=== PATIENT | female | born 1990 | race Caucasian/White ===

== ENCOUNTER 2023-04-15 14:00 | Emergency (ER) | payer MEDICAID ==
[~2023-04-15] VITALS: Ht 162.6 cm; Wt 56.3 kg
[~2023-04-15 14:00] MED LIST: ASPI81CH43 PO
[2023-04-15] MEDS ORDERED: KETOROLAC TROMETH 60MG/2ML VIAL IM ONE (15:15)
[2023-04-15] MEDS ORDERED: ONDANSETRON ODT 4 MG TAB PO ONE (15:15)
[2023-04-15] MEDS ORDERED: ZOFR4T PO (15:24)
[2023-04-15] MEDS ORDERED: IBUP-1454 PO (15:24)
[2023-04-15 15:44] VITALS: BP 110/80; PULSE 80; RESP 18; O2SAT 100
== END 2023-04-15 15:46 | disposition home or self-care (01) ==
LOC: ER 14:00
DX: G43.909 Migraine, unspecified, not intractable, without status migrainosus (principal); Z79.82 Long term (current) use of aspirin; Z79.1 Long term (current) use of non-steroidal anti-inflammatories (NSAID); Z79.899 Other long term (current) drug therapy
CPT/HCPCS: 96372; 99283; J1885; Q0162

== ENCOUNTER 2023-05-23 22:40 | Emergency (ER) | payer MEDICAID ==
[~2023-05-23] VITALS: Ht 162.6 cm; Wt 56.8 kg
[~2023-05-23 22:40] MED LIST changes: +IBUP-1454 PO; +ZOFR4T PO
[2023-05-23 22:58] VITALS: BP 106/55; PULSE 94; RESP 20; O2SAT 98
== END 2023-05-24 01:23 | disposition left against medical advice (07) ==
LOC: ER 22:40
DX: S11.91XD Laceration without foreign body of unspecified part of neck, subsequent encounter (principal); Z53.21 Procedure and treatment not carried out due to patient leaving prior to being seen by health care provider; X58.XXXD Exposure to other specified factors, subsequent encounter

== ENCOUNTER 2024-09-01 21:27 | Emergency (ER) | payer MEDICAID ==
[~2024-09-01] VITALS: Ht 162.6 cm; Wt 61.8 kg
[2024-09-01 22:14] VITALS: BP 113/64; PULSE 86; RESP 18; TEMP 98; O2SAT 97
[2024-09-01] MEDS ORDERED: IBUP1TAB4 PO (22:26)
--- NOTE | 2024-09-01 22:26 | ED.PDOC ---
Back pain HPI HPI Comments 33-year-old female with no pertinent past medical history, presents to ED for left hand pain x1 week, without any other associated symptoms. 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 She also states that the pain is aggravated with certain movements. Patient currently rates her pain as 5/10 in severity. She denies taking any medication for pain. No fever, chills, nausea, vomiting, numbness, tingling. Pain is localized to her left hand around the thumb region. Chief Complaint: Upper Extremity Time Seen by MD: 21:28 Primary Care Provider: Unknown Reviewed Notes: Nurses Notes, Medications, Allergies Allergies: Coded Allergies: NO KNOWN ALLERGIES (Unverified , 02/14/13) Home Meds Active Scripts Ondansetron Odt 4MG Tab (ZOFRAN PO) 4 Mg Tb, 4 MG PO BID, #20 TAB ODT TAB-DISSOLVE IN MOUTH, THEN SWALLOW Prov:ROSELINE ARRIAZA 04/15/23 Ibuprofen (Ibuprofen) 600 Mg Tab, 1 TAB PO TID, #30 TAB Prov:ROSELINE ARRIAZA 04/15/23 Reported Medications Aspirin (Asa) 81 Mg Ch, 81 MG PO OD 02/14/13 Mode of Arrival: Ambulatory Past Medical History PAST MEDICAL HISTORY: Denies Surgical History: REHAB NURSE History: Denies all REHAB NURSE Hx Family History Family History: Reviewed,noncontributory to illness Social History Smoker: Non-Smoker Alcohol: Denies ETOH Use Drugs: Denies Drug Use Lives In: Home Constitutional: denies: chills, diaphoresis, fatigue, fever, malaise, sweats, weakness, others EENTM: denies: blurred vision, double vision, ear bleeding, ear discharge, ear drainage, ear pain, ear ringing, eye pain, eye redness, hearing loss, mouth pain, mouth swelling, nasal discharge, nose bleeding, nose congestion, nose pain, photophobia, tearing, throat pain, throat swelling, voice changes, others Respiratory: denies: cough, hemoptysis, orthopnea, SOB at rest, shortness of breath, SOB with excertion, stridor, wheezing, others Cardiovascular: denies: chest pain, dizzy spells, diaphoresis, Dyspnea on exertion, edema, irregular heart beat, left arm pain, lightheadedness, palpitations, PND, syncope, others Gastrointestinal: denies: abdomen distended, abdominal pain, blood streaked bowels, constipated, diarrhea, dysphagia, difficulty swallowing, hematemesis, melena, nausea, poor appetite, poor fluid intake, rectal bleeding, rectal pain, vomiting, others Genitourinary: denies: abnormal vagina bleeding, burning, dyspareunia, dysuria, flank pain, frequency, hematuria, incontinence, pain, , vagina discharge, urgency, others Musculoskeletal: reports: joint pain; denies: back pain, gout, joint swelling, muscle pain, muscle stiffness, neck pain, others Integumetry: denies: bruises, change in color, change in hair/nails, dryness, laceration, lesions, lumps, rash, wounds, others Allergic/Immunocompromised: denies: Difficulty Healing, Frequent Infections, Hives, Itching, others Hematologic/Lymphatic: denies: anemia, blood clots, easy bleeding, easy bruising, swollen glands, others Endocrine: denies: excessive hunger, excessive sweating, excessive thirst, excessive urination, flushing, intolerance to cold, intolerance to heat, un explained weight gain, unexplained weight loss, others Psychiatric: denies: anxiety, bipolar disorder, depression, hopeless, panic disorder, schizophrenia, sleepless, suicidal, others All Other Systems: Reviewed and Negative Physical Exam General Appearance: No Apparent Distress, Normal HEENT: Normal ENT Inspection, Pharynx Normal, TMs Normal Neck: Full Range of Motion, Non-Tender, Normal, Normal Inspection Respiratory: Chest Non-Tender, Lungs Clear, No Accessory Muscle Use, No Respiratory Distress, Normal Breath Sounds Cardiovascular: No Edema, No JVD, No Murmur, No Gallop, Normal Peripheral Pu lses, Regular Rate/Rhythm Breast Exam: Deferred Gastrointestinal: No Organomegaly, Non Tender, No Pulsatile Mass, Normal Bowel Sounds, Soft Genitalia: Deferred Pelvic: Deferred Rectal: Deferred Extremities: No calf tenderness, Normal capillary refill, Normal inspection, Normal range of motion, Non-tender, No pedal edema Musculoskeletal : Location: Left Extremity Location: Hand (Full range of motion of the left hand. Patient able to make a fist. Normal sensation to the hand. No tenderness to palpation. Positive Rich's test. No obvious deformity or swelling noted. No erythema or ecchymosis noted.) Apperance: Normal Neurologic: Alert, chopper operator II-XII nml as Tested, No Motor Deficits, Normal Affect, Normal Mood, No Sensory Deficits Cerebellar Function: Normal Reflexes: Normal Skin: Dry, Normal Color, Warm Lymphatic: No Adenopathy Was a procedure done? Was a procedure done?: No Back Pain Differential Dx Differential Diagnosis: DJD, Fracture, Musculoskeletal Pain, Strain, Other (Tendinitis) X-Ray, Labs, Meds, VS Vital Signs Date Time Temp Pulse Resp B/P (MAP) Pulse Ox O2 Delivery O2 Flow Rate FiO2 09/01/24 22:14 86 18 97 Room Air 09/01/24 22:14 98.0 86 18 113/64 (80) 97 98.0 09/01/24 21:58 98.0 86 18 113/64 (80) 97 X-Ray, Labs, Meds, VS Comment MDM: Patient with history as above presented with left hand pain. History obtained from patient. Patient was nontoxic, stable, afebrile, ambulatory, no acute distress. Exam as above. Reviewed external records. All findings were discussed with the patient. Differential diagnosis considered. Overall presentation is consistent with musculoskeletal hand pain, likely tendinitis. Low suspicion for acute fracture, dislocation, septic joint, acute infection. Patient was treated with Toradol with improvement in symptoms. Patient was reevaluated and vital signs were reviewed. Consideration was given for admission, but the patient was stable for outpatient management. Prescribed ibuprofen for outpatient treatment. Disposition: Discussed the need to follow up diagnostics, including incidental findings. Discharged the patient with instructions to obtain outpatient follow up in 1-2 days of today's symptoms and findings, with strict return precautions if patient develops new or worsening symptoms. This medical document was created using the [employer] system. Although this document has been carefully reviewed, there may still be some phonetic and typographical errors, which are due to imperfections of the software program, and do not reflect any compromise in the patient's medical care. Time of 1ST Reevaluation: 22:25 Reevaluation 1ST: Improved Patient Education/Counseling: Diagnosis, Treatment, Prognosis, Need For Follow Up Family Education/Counseling: No Family Present Departure 1 Departure Time of Disposition: 22:25 Impression: Primary Impression: Left hand pain Disposition: HOME / SELF CARE / HOMELESS Condition: Fair e-Prescriptions Ibuprofen Micronized (Ibuprofen) 400 Mg Tab 400 MG PO Q6HPRN PRN, #30 TAB Prov: JOSE HERNÁNDEZ PAC 09/01/24 Critical Care Note Critical Care Time?: No Stability Stability form required: No Heart Score Heart Score: Heart Score Response (Comments) Value History N/A 0 EKG N/A 0 Age N/A 0 Risk Factors N/A 0 Troponin N/A 0 Total 0 JOSE HERNÁNDEZ PAC Sep 01, 2024 22:26
[2024-09-01] MEDS: KETOROLAC TROMETH 30 MG/ML 1ML VIAL IM ONE (22:31)
== END 2024-09-01 22:36 | disposition home or self-care (01) ==
LOC: ER 21:27
DX: M79.642 Pain in left hand (principal); Z79.1 Long term (current) use of non-steroidal anti-inflammatories (NSAID)
CPT/HCPCS: 96372; 99283; J1885

== ENCOUNTER 2024-12-15 00:08 | Inpatient (IN) | payer MEDICAID ==
[~2024-12-15] VITALS: Ht 165.1 cm; Wt 73.6 kg
[2024-12-15] VITALS (7 sets, daily range): BP systolic 96–115; BP diastolic 48–61; PULSE 55–85; RESP 14–18; TEMP 96.7–98.4; O2SAT 96–99
[~2024-12-15 00:08] MED LIST changes: +IBUP1TAB4 PO
--- NOTE | 2024-12-15 00:27 | ED.PDOC ---
History of Present Illness HPI Comments 34-year-old female who came to ER via EMS for back pains. Patient is a , was at [facility] earlier today, where in she had an , status post dilatation and curettage. As she got home, she started complaining of lower back pains, radiating to her mid/lower abdomen, associated with nausea and vomiting. Noted also minimal vaginal bleeding. Vital signs were stable on arrival, but the patient was in severe pain and does look toxic. Chief Complaint: Back pain Time Seen by MD: 00:26 Primary Care Provider: Unknown Reviewed Notes: Nurses Notes, Wireless Operator Notes Allergies: Coded Allergies: NO KNOWN ALLERGIES (Unverified , 02/14/13) Home Meds Active Scripts Ibuprofen Micronized (Ibuprofen) 400 Mg Tab, 400 MG PO Q6HPRN PRN, #30 TAB Prov:JOSE HERNÁNDEZ PAC 09/01/24 Ondansetron Odt 4MG Tab (ZOFRAN PO) 4 Mg Tb, 4 MG PO BID, #20 TAB ODT TAB-DISSOLVE IN MOUTH, THEN SWALLOW Prov:ROSELINE ARRIAZA 04/15/23 Ibuprofen (Ibuprofen) 600 Mg Tab, 1 TAB PO TID, #30 TAB Prov:ROSELINE ARRIAZA 04/15/23 Reported Medications Aspirin (Asa) 81 Mg Ch, 81 MG PO OD 02/14/13 Information Source: Patient, Emergency Med Personnel Mode of Arrival: EMS Severity: Moderate Timing: Hours Duration: Since onset Prehospital treatment: None Past Medical History PAST MEDICAL HISTORY: Denies Surgical History: Surgical History (Other): D&C procedure performed today MAIL CENSOR History: Denies all MAIL CENSOR Hx 8 Para 6 Family History Family History: Reviewed,noncontributory to illness Social History Smoker: Non-Smoker Alcohol: Denies ETOH Use Drugs: Denies Drug Use Lives In: Home Constitutional: denies: chills, diaphoresis, fatigue, fever, malaise, sweats, weakness, others EENTM: denies: blurred vision, double vision, ear bleeding, ear discharge, ear drainage, ear pain, ear ringing, eye pain, eye redness, hearing loss, mouth pain, mouth swelling, nasal discharge, nose bleeding, nose congestion, nose pain, photophobia, tearing, throat pain, throat swelling, voice changes, others Respiratory: denies: cough, hemoptysis, orthopnea, SOB at rest, shortness of breath, SOB with excertion, stridor, wheezing, others Cardiovascular: denies: chest pain, dizzy spells, diaphoresis, Dyspnea on exertion, edema, irregular heart beat, left arm pain, lightheadedness, palpitations, PND, syncope, others Gastrointestinal: reports: abdominal pain, nausea, vomiting; denies: abdomen distended, blood streaked bowels, constipated, diarrhea, dysphagia, difficulty swallowing, hematemesis, melena, poor appetite, poor fluid intake, rectal bleeding, rectal pain, others Genitourinary: reports: abnormal vagina bleeding; denies: burning, dyspareunia, dysuria, flank pain, frequency, hematuria, incontinence, pain, , vagina discharge, urgency, others Neurological: denies: dizziness, fainting, headache, left sided numbness, left sided weakness, numbness, paresthesia, pre-existing deficit, right sided numbness, right sided weakness, seizure, speech problems, tingling, tremors, weakness, others Musculoskeletal: reports: back pain; denies: gout, joint pain, joint swelling, muscle pain, muscle stiffness, neck pain, others Integumetry: denies: bruises, change in color, change in hair/nails, dryness, laceration, lesions, lumps, rash, wounds, others Allergic/Immunocompromised: denies: Difficulty Healing, Frequent Infections, Hives, Itching, others Hematologic/Lymphatic: denies: anemia, blood clots, easy bleeding, easy bruising, swollen glands, others Endocrine: denies: excessive hunger, excessive sweating, excessive thirst, excessive urination, flushing, intolerance to cold, intolerance to heat, unexplained weight gain, unexplained weight loss, others Psychiatric: denies: anxiety, bipolar disorder, depression, hopeless, panic disorder, schizophrenia, sleepless, suicidal, others Physical Exam General Appearance: Moderate Distress (Patient was in moderate distress at time of evaluation due to belly and back pain concerns.), Normal HEENT: Normal ENT Inspection, Pharynx Normal, TMs Normal Neck: Full Range of Motion, Non-Tender, Normal, Normal Inspection Respiratory: Chest Non-Tender, Lungs Clear, No Accessory Muscle Use, No Respiratory Distress, Normal Breath Sounds Cardiovascular: No Edema, No JVD, No Murmur, No Gallop, Normal Peripheral Pulses, Regular Rate/Rhythm Breast Exam: Deferred Gastrointestinal: Other (Diffuse tenderness to palpation throughout the lower abdomen and pelvis region. Abdomen was mildly rigid.) Genitalia: Deferred Pelvic: Deferred Rectal: Deferred Extremities: No calf tenderness, Normal capillary refill, Normal inspection, Normal range of motion, Non-tender, No pedal edema Musculoskeletal : Location: Bilateral Extremity Location: Back (Remarkable evaluation of lower back and lumbar spine region. No signs of trauma.) Apperance: Normal Neurologic: Alert, No Motor Deficits, Normal Affect, Normal Mood, No Sensory Deficits Cerebellar Function: Normal Reflexes: Normal Skin: Dry, Normal Color, Warm Lymphatic: No Adenopathy Was a procedure done? Was a procedure done?: No Differential Dx Considerations may include: Musculoskeletal pain, lumbosacral strain, urinary tract infection, sepsis, electrolyte abnormality, complication of D and C X-Ray, Labs, Meds, VS Vital Signs Date Time Temp Pulse Resp B/P (MAP) Pulse Ox O2 Delivery O2 Flow Rate FiO2 12/15/24 00:32 Room Air 12/15/24 00:32 98.6 75 20 140/89 (106) 99 98.6 12/15/24 00:32 98.6 75 20 140/89 (106) 99 98.6 Lab Test 12/15/24 00:22 Range/Units White Blood Count 19.6 H 4.4-10.8 10^3/uL Red Blood Count 4.06 4.0-5.20 10^6/uL Hemoglobin 12.4 12.2-16.2 g/dL Hematocrit 36.6 36.0-46.0 % Mean Corpuscular Volume 90.1 80.0-100.0 fL Mean Corpuscular Hemoglobin 30.4 28.0-32.0 pg Mean Corpuscular Hemoglobin Concent 33.8 32.0-36.0 g/dL Red Cell Distribution Width 13.7 11.8-14.3 % Platelet Count 145 140-450 10^3/uL Mean Platelet Volume 8.0 6.9-10.8 fL Neutrophils (%) (Auto) 88.1 H 37.0-80.0 % Lymphocytes (%) (Auto) 6.5 L 10.0-50.0 % Monocytes (%) (Auto) 4.8 0.0-12.0 % Eosinophils (%) (Auto) 0.1 0.0-7.0 % Basophils (%) (Auto) 0.5 0.0-2.0 % Neutrophils # (Auto) 17.3 H 1.6-8.6 10 ^3/uL Lymphocytes # (Auto) 1.3 0.4-5.4 10 ^3/uL Monocytes # (Auto) 0.9 0-1.3 10 ^3/uL Eosinophils # (Auto) 0 0-0.8 10 ^3/uL Basophils # (Auto) 0.1 0-0.2 10 ^3/uL Nucleated Red Blood Cells 0.0 % Sodium Level Pending Potassium Level Pending Chloride Level Pending Carbon Dioxide Level Pending Anion Gap Pending Blood Urea Nitrogen Pending Creatinine Pending Glomerular Filtration Rate Calc Pending BUN/Creatinine Ratio Pending Serum Glucose Pending Calcium Level Pending Total Bilirubin Pending Aspartate Amino Transferase (AST) Pending Alanine Aminotransferase (ALT) Pending Alkaline Phosphatase Pending Total Protein Pending Albumin Pending Current Medications Medications (Trade) Dose Ordered Sig/Richard Route Start Time Stop Time Status Last Admin Acetaminophen/ Hydrocodone Bitart ([place] 10/325MG Tab) 1 tab ONCE ONCE PO 12/15/24 00:15 12/15/24 00:16 DC 12/15/24 00:47 Ondansetron HCl (Zofran Po) 4 mg ONCE ONCE PO 12/15/24 00:15 12/15/24 00:16 DC 12/15/24 00:47 X-Ray, Labs, Meds, VS Comment Multiple studies were pending at time of this note[place] [id number]. I initiated septic protocols without definitive sepsis diagnosis. Patient will be admitted for her leukocytosis concerns as well as any additional findings on laboratories. Patient should receive a gynecological consult tomorrow Time of 1ST Reevaluation: 01:30 Reevaluation 1ST: Improved Consultation: PCP, non clinical advisor Patient Education/Counseling: Diagnosis, Treatment Family Education/Counseling: Diagnosis, Treatment, No Family Present Departure 1 Departure Time of Disposition: 01:31 Impression: Primary Impression: Leukocytosis Additional Impression: Postoperative complication Disposition: ADMITTED INPATIENT Condition: Fair Discharged With: Self Critical Care Note Critical Care Time?: No Stability Stability form required: No Heart Score Heart Score: Heart Score Response (Comments) Value History N/A 0 EKG N/A 0 Age N/A 0 Risk Factors N/A 0 Troponin N/A 0 Total 0 I personally scribed for RICHY RICHARDSON PAC ([email or web address]) on 12/15/24 at 00:27. Electronically submitted by Anselmo Parks ([email or web address]). RICHY RICHARDSON PAC Dec 15, 2024 00:27
[2024-12-15] MEDS: HYDROcodone-ACET 10/325MG TAB PO ONE (00:47)
[2024-12-15] MEDS: ONDANSETRON ODT 4 MG TAB PO ONE (00:47)
[2024-12-15 01:09] LABS: Basophils # (auto) 0.1 10 ^3/uL (0-0.2); Basophils % (auto) 0.5 % (0.0-2.0); Eosinophils # (auto) 0 10 ^3/uL (0-0.8); Eosinophils % (auto) 0.1 % (0.0-7.0); Hematocrit 36.6 % (36.0-46.0); Hemoglobin 12.4 g/dL (12.2-16.2); Lymphocytes # (auto) 1.3 10 ^3/uL (0.4-5.4); Lymphocytes % (auto) 6.5 % (10.0-50.0); Mean Corpuscular Hemoglobin 30.4 pg (28.0-32.0); Mean Corpuscular Hgb Conc. 33.8 g/dL (32.0-36.0); Mean Corpuscular Volume 90.1 fL (80.0-100.0); Monocytes # (auto) 0.9 10 ^3/uL (0-1.3); Monocytes % (auto) 4.8 % (0.0-12.0); Neutrophils # (auto) 17.3 10 ^3/uL (1.6-8.6); Neutrophils % (auto) 88.1 % (37.0-80.0); Platelet Count (auto) 145 10^3/uL (140-450); Red Blood Cells 4.06 10^6/uL (4.0-5.20); Red Cell Distribution Width 13.7 % (11.8-14.3); White Blood Cell 19.6 10^3/uL (4.4-10.8)
[2024-12-15 01:27] LABS: Alanine Aminotransferase 12 U/L (7-40); Albumin 4.3 g/dL (3.2-4.8); Anion Gap 11 (5-15); Aspartate Aminotransferase 18 U/L (13-40); BUN/Creatinine Ratio 17.5 (10.0-20.0); Blood Urea Nitrogen 11 mg/dL (9-23); Calcium 9.7 mg/dL (8.7-10.4); Chloride 105 mmol/L (98-107); Total Protein 6.6 g/dL (5.7-8.2)
[2024-12-15 01:30] LABS: Alkaline Phosphatase 42 U/L (46-116); Bilirubin, Total 1.3 mg/dL (0.2-1.0); Carbon Dioxide 19 mmol/L (20-31); Glucose 150 mg/dL (74-106); Potassium 3.4 mmol/L (3.5-5.1); Sodium 135 mmol/L (136-145)
[2024-12-15] MEDS ORDERED: VANCOMYCIN PER PHARMACY 0 MG IV SCH ×2 (01:30→02:15)
[2024-12-15] MEDS: VANCOMYCIN 1GM/200ML PM 200 ML IV ONE ×2 (01:45→05:26)
[2024-12-15] MEDS ORDERED: DOCUSATE SOD 100 MG CAP PO PRN (02:15)
[2024-12-15] MEDS ORDERED: ACETAMINOPHEN 325 MG TAB PO PRN (02:15)
[2024-12-15] MEDS ORDERED: LORazepam 0.5 MG TAB PO PRN (02:15)
[2024-12-15] MEDS ORDERED: TEMAZEPAM 15 MG CAP PO PRN (02:15)
[2024-12-15] MEDS ORDERED: MAALOX PLUS or MAALOX 30 ML PO PRN (02:15)
[2024-12-15] MEDS: SODIUM CHLORIDE 0.9% 1,000 ML IV SCH (02:15)
[2024-12-15] MEDS: SODIUM CHLORIDE 0.9% 1,000 ML IV ONE (02:44)
[2024-12-15] MEDS: HYDROMORPHONE HCL 1 MG/ML INJ IV ONE (02:45)
[2024-12-15] MEDS: MORPHINE SULFATE INJ 2 MG/ml SYRG IV PRN (02:54)
[2024-12-15] MEDS: ONDANSETRON HCL 4 MG/2 ML VIAL IV PRN (02:54)
[2024-12-15 02:55] LABS: Lactic Acid w/Reflex 2.8 mmol/L (0.4-2.0)
[2024-12-15] MEDS: PIPERACILLIN-TAZOB 3.375GM 100 ML IV ONE (02:56)
--- NOTE | 2024-12-15 02:59 | DVHHP2 ---
History of Present Illness Reason for Visit: abd pain History of Present Illness 34-year-old female came to the ED for evaluation of acute abdominal pain stated that she had a earlier and had a D&C completed states that after this D&C was done she went home and was having severe abdominal pain mild vaginal bleeding came to the ED with complaints of severe plain elevated white count and appearing septic in nature patient was evaluated in the ED and recommended for inpatient management and treatment Review of Systems Constitutional: Yes: Fever; No: Chills, Sweats, Weakness, Malaise, Other Eyes: No: Pain, Vision change, Conjunctivae inflammation, Eyelid inflammation, Other, Redness ENT: No: Ear pain, Ear discharge, Nose pain, Nose discharge, Nose congestion, Mouth pain, Mouth swelling, Throat pain, Throat swelling, Other Respiratory: No: Cough, Dry, Shortness of breath, SOB with excertion, Wheezing, Hemoptysis, Pleuritic Pain, Sputum, Wheezing, Other Cardiovascular: No: Chest Pain, Palpitations, Orthopnea, Paroxysmal Noc. Dyspnea, Edema, Lt Headedness, Other Gastrointestinal: Nausea, Abdominal Pain; No: Vomiting, Diarrhea, Constipation, Melena, Hematochezia, Other Genitourinary: No Dysuria, No Frequency, No Incontinence, No Hematuria, No Retention, No Other Musculoskeletal: No: other, neck pain, shoulder pain, arm pain, back pain, hand pain, leg pain, foot pain Skin: No: Rash, Lesions, Jaundice, Bruising, Other Neurological: No: Weakness, Numbness, Incoordination, Change in speech, Confusion, Seizures, Other Allergies: Coded Allergies: NO KNOWN ALLERGIES (Unverified , 02/14/13) Medications Current Medications Medications Dose Ordered Sig/Richard Route Start Time Stop Time Status Last Admin Dose Admin Vancomycin HCl 0 ml @ 0 mls/hr UD IV 12/15/24 02:15 UNV Piperacillin Sod/ Tazobactam Sod 100 ml @ 100 mls/hr Q8HR IV 12/15/24 14:00 Sodium Chloride 1,000 ml @ 100 mls/hr Q10H IV 12/15/24 02:15 Lorazepam 0.5 mg Q6HP PRN PO 12/15/24 02:15 Al Hydrox/Mg Hydrox/Simethicone 30 ml Q6HP PRN PO 12/15/24 02:15 Docusate Sodium 100 mg BIDPRN PRN PO 12/15/24 02:15 Acetaminophen 650 mg Q6HP PRN PO 12/15/24 02:15 Temazepam 15 mg QHSP PRN PO 12/15/24 02:15 Acetaminophen/ Hydrocodone Bitart 1 tab Q4HP PRN PO 12/15/24 02:15 Ondansetron HCl 4 mg Q4HP PRN IV 12/15/24 02:15 12/15/24 02:54 4 MG Morphine Sulfate 2 mg Q4HPRN PRN IV 12/15/24 02:15 12/15/24 02:54 2 MG Exam Vital Signs Vital Signs Date Time Temp Pulse Resp B/P (MAP) Pulse Ox O2 Delivery O2 Flow Rate FiO2 12/15/24 02:54 62 16 116/69 12/15/24 00:32 Room Air 12/15/24 00:32 98.6 99 98.6 Exam General Appearance: Moderate Distress (Patient was in moderate distress at time of evaluation due to belly and back pain concerns.), Normal HEENT: Normal ENT Inspection, Pharynx Normal, TMs Normal Neck: Full Range of Motion, Non-Tender, Normal, Normal Inspection Respiratory: Chest Non-Tender, Lungs Clear, No Accessory Muscle Use, No Respiratory Distress, Normal Breath Sounds Cardiovascular: No Edema, No JVD, No Murmur, No Gallop, Normal Peripheral P ulses, Regular Rate/Rhythm Breast Exam: Deferred Gastrointestinal: Other (Diffuse tenderness to palpation throughout the lower abdomen and pelvis region. Abdomen was mildly rigid.) Genitalia: Deferred Pelvic: Deferred Rectal: Deferred Extremities: No calf tenderness, Normal capillary refill, Normal inspection, Normal range of motion, Non-tender, No pedal edema Musculoskeletal : Location: Bilateral Extremity Location: Back (Remarkable evaluation of lower back and lumbar spine region. No signs of trauma.) Apperance: Normal Neurologic: Alert, No Motor Deficits, Normal Affect, Normal Mood, No Sensory Deficits Cerebellar Function: Normal Reflexes: Normal Skin: Dry, Normal Color, Warm Lymphatic: No Adenopathy Labs/Xrays Labs Test 12/15/24 01:50 12/15/24 00:22 Range/Units White Blood Count 19.6 H 4.4-10.8 10^3/uL Red Blood Count 4.06 4.0-5.20 10^6/uL Hemoglobin 12.4 12.2-16.2 g/dL Hematocrit 36.6 36.0-46.0 % Mean Corpuscular Volume 90.1 80.0-100.0 fL Mean Corpuscular Hemoglobin 30.4 28.0-32.0 pg Mean Corpuscular Hemoglobin Concent 33.8 32.0-36.0 g/dL Red Cell Distribution Width 13.7 11.8-14.3 % Platelet Count 145 140-450 10^3/uL Mean Platelet Volume 8.0 6.9-10.8 fL Neutrophils (%) (Auto) 88.1 H 37.0-80.0 % Lymphocytes (%) (Auto) 6.5 L 10.0-50.0 % Monocytes (%) (Auto) 4.8 0.0-12.0 % Eosinophils (%) (Auto) 0.1 0.0-7.0 % Basophils (%) (Auto) 0.5 0.0-2.0 % Neutrophils # (Auto) 17.3 H 1.6-8.6 10 ^3/uL Lymphocytes # (Auto) 1.3 0.4-5.4 10 ^3/uL Monocytes # (Auto) 0.9 0-1.3 10 ^3/uL Eosinophils # (Auto) 0 0-0.8 10 ^3/uL Basophils # (Auto) 0.1 0-0.2 10 ^3/uL Nucleated Red Blood Cells 0.0 % Sodium Level 135 L 136-145 mmol/L Potassium Level 3.4 L 3.5-5.1 mmol/L Chloride Level 105 98-107 mmol/L Carbon Dioxide Level 19 L 20-31 mmol/L Anion Gap 11 5-15 Blood Urea Nitrogen 11 9-23 mg/dL Creatinine 0.63 0.550-1.02 mg/dL Glomerular Filtration Rate Calc 120 >90 mL/min BUN/Creatinine Ratio 17.5 10.0-20.0 Serum Glucose 150 H 74-106 mg/dL Lactic Acid Level 2.8 *H 0.4-2.0 mmol/L Calcium Level 9.7 8.7-10.4 mg/dL Total Bilirubin 1.3 H 0.2-1.0 mg/dL Aspartate Amino Transferase (AST) 18 13-40 U/L Alanine Aminotransferase (ALT) 12 7-40 U/L Alkaline Phosphatase 42 L 46-116 U/L Total Protein 6.6 5.7-8.2 g/dL Albumin 4.3 3.2-4.8 g/dL Assessment/Plan Assessment/Plan Admit to [facility] Suspected sepsis secondary to D&C procedure IV hydration IV antibiotics doctorate of chiropractic consultation P.r.n. management for pain Plan discussed with: Patient My Orders Orders - JOSE E GONZALEZ MD Procedure Category Date Status Time Vancomycin Per PHA 12/15/24 Pending Pharmacy 02:15 Piperacillin-Tazob PHA 12/15/24 In Process 3.375gm (Zosyn 3.375g 14:00 * Engineering Director Consultation CONS 12/15/24 Transmitted 02:15 Admit ADMIT 12/15/24 Transmitted 02:15 Code Status CODE 12/15/24 Transmitted 02:15 Vital Signs [facility] 12/15/24 In Process 02:15 Review Orders With [facility] 12/15/24 In Process Adm. 02:15 Npo (Nothing By DIET 12/15/24 Transmitted Mouth) Diet Breakfast Sodium Chloride 0.9% [facility] 12/15/24 In Process 02:15 Lorazepam Tablet [facility] 12/15/24 In Process (Ativan Tablet) 02:15 Alum & Mag [facility] 12/15/24 In Process Hydrox-Simethicone 02:15 Docusate Sodium [facility] 12/15/24 In Process Capsule (Colace 02:15 Acetaminophen Tablet [facility] 12/15/24 In Process (Tylenol Tablet) 02:15 Temazepam (Restoril) [facility] 12/15/24 In Process 02:15 Notify Of Changes [facility] 12/15/24 In Process From Base 02:15 Advance Directive [facility] 12/15/24 In Process 02:15 Basic Metabolic Panel LAB 12/15/24 Logged 04:00 Complete Blood Count LAB 12/15/24 Logged 04:00 Patient Condition ORDERS 12/15/24 Transmitted 02:15 Allergies YEVGENIY 12/15/24 In Process 02:15 Hydrocodone-Acet PHA 12/15/24 In Process 5/325mg Tab ([place] 02:15 Ondansetron Hcl PHA 12/15/24 In Process (Zofran) 02:15 Morphine Sulfate PHA 12/15/24 In Process Injection 02:15 Notify Of Changes [facility] 12/15/24 In Process From Base 02:15 Oxygen By Nasal RT 12/15/24 Transmitted Cannula 02:15 Date of Service: Dec 15, 2024 Billing Provider: JOSE E GONZALEZ MD Common Visit Codes: 38570-[id number] INP/OBS CARE (HIGH) JOSE E GONZALEZ MD Dec 15, 2024 02:59
[2024-12-15] MEDS: HYDROcodone-ACET 5/325MG TAB PO PRN (04:21)
[2024-12-15 04:43] LABS: Basophils # (auto) 0 10 ^3/uL (0-0.2); Basophils % (auto) 0.2 % (0.0-2.0); Eosinophils # (auto) 0 10 ^3/uL (0-0.8); Hemoglobin 11.8 g/dL (12.2-16.2); Lymphocytes # (auto) 0.7 10 ^3/uL (0.4-5.4); Mean Corpuscular Hemoglobin 30.4 pg (28.0-32.0); Mean Corpuscular Hgb Conc. 33.8 g/dL (32.0-36.0); Monocytes # (auto) 0.3 10 ^3/uL (0-1.3); Monocytes % (auto) 2.2 % (0.0-12.0); Neutrophils # (auto) 13.4 10 ^3/uL (1.6-8.6); Neutrophils % (auto) 92.6 % (37.0-80.0); Platelet Count (auto) 138 10^3/uL (140-450); Red Blood Cells 3.89 10^6/uL (4.0-5.20); Red Cell Distribution Width 13.4 % (11.8-14.3); White Blood Cell 14.5 10^3/uL (4.4-10.8)
[2024-12-15 04:50] LABS: Chloride 105 mmol/L (98-107); Potassium 3.8 mmol/L (3.5-5.1); Sodium 136 mmol/L (136-145)
[2024-12-15 04:51] LABS: Anion Gap 8 (5-15); Calcium 9.5 mg/dL (8.7-10.4); Carbon Dioxide 23 mmol/L (20-31)
[2024-12-15 04:56] LABS: Blood Urea Nitrogen 11 mg/dL (9-23)
[2024-12-15 04:57] LABS: Glucose 116 mg/dL (74-106)
[2024-12-15] MEDS: IOHEXOL 350 MG/ML 100ML IJ ONE (07:36)
[2024-12-15] MEDS: IOHEXOL 300 MG/ML 100ML BOTTLE IJ ONE (07:37)
--- NOTE | 2024-12-15 09:10 | DVH ---
CLINICAL INFORMATION: Abdominal pain, sepsis, status post dilation and curettage. TECHNIQUE: Axial CT images of the abdomen and pelvis were obtained after the uneventful administrati on of 100 mL Omnipaque 300 IV contrast. Coronal and sagittal reformatted images were obtained, review ed, and stored. All CT scans at this medical facility are performed using dose modulation techniques as appropriate to a performed exam including the following: Automated exposure control was utilized; adjustment of the MA and/or KV according to patient size; and use of iterative reconstruction [employer] ue. CTDIvol = 6.36 mGy DLP = 311.47 mGy-cm COMPARISON: None FINDINGS: Lung bases: Lung bases are clear. Liver: Hepatic steatosis. Biliary: Calcified gallstones in the gallbladder. Gallbladder is mildly distended. Spleen: Unremarkable. Pancreas: Unremarkable. No inflammatory changes, ductal dilatation, or mass identified. Adrenal glands: Unremarkable. No mass. Kidneys: Moderate left hydronephrosis, with no obstructing calculus visualized. The hydronephrosis ma y be secondary to extrinsic compression of the left ureter by the enlarged uterus described below. Sm all cysts in the right kidney. Aorta/Vascular: No aneurysm or significant calcification. Retroperitoneum: No mass or lymphadenopathy. Bowel/mesentery: Nonspecific nondilated fluid-filled small bowel loops. No small bowel obstruction. A ppendix is not visualized. There is a small amount of free fluid in the abdomen and pelvis. No free i ntraperitoneal air. Pelvic organs: Uterus is enlarged, measuring up to 14.7 x 11.0 x 13.2 cm with prominent complex fluid in a distended endometrial canal and thickening and enhancement along the periphery of the uterus. S mall amount of adjacent free fluid. There is an ovoid structure along the left anterior superior aspe ct of the uterus measuring up to 3.4 cm, with heterogeneous enhancement, appears to be due to promine nt venous structures and adjacent focal fluid collection in this location. Additional areas of promin ent vascularity along the periphery of the uterus are noted. There is an ovoid heterogeneously enhanc ing structure adjacent to the right posterior aspect of the uterus measuring up to 2.8 cm, possibly c orrelating with the right ovary. Bladder: Bladder is displaced anteriorly due to the uterine dilation. Abdominal wall: No mass or hernia. Bones: No acute fracture or focal intraosseous lesion. IMPRESSION: 1. Markedly distended endometrial canal, may be partly due to residual sequela of reported history of dilation and curettage. Suspected hemorrhage and/or superimposed infection. If the patient is recent ly , retained products of conception not excluded. 2. Prominent vascularity adjacent to the uterus. Ovoid structure along the right posterior aspect of the uterus may be due to the right ovary. Ovoid structure along the left anterior superior aspect of the uterus, appears to be a focal fluid collection with adjacent prominent veins. 3. Moderate left hydronephrosis, likely due to extrinsic compression of the left ureter by the enlarg ed uterus. Critical findings Critical Result: Distended uterine endometrial canal with complex fluid in the endometrial canal, william pected hemorrhage and/or superimposed infection. Retained products not excluded in the appropriate cl inical setting. The [facility] radiology call center was contacted to assist with contacting the ordering physician port cri tical findings 10:44 a.m. CDT. The report will be submitted pending verbal communication of the resu lts. ..
--- NOTE | 2024-12-15 09:14 | DVH ---
US OB ULTRASOUND COMP LESS 14WKS HISTORY: suspected incomplete COMPARISON: 12/15 TECHNIQUE: Transabdominal images with color doppler were obtained of the pelvis. FINDINGS: Uterus: - Measures 15.0 x 11.7 x 12.1 cm in length.- intrauterine : Not seen. - Gestational sac: Not seen. - Yolk sac: Not seen. - Embryonic pole: Not seen. Right ovary: - Not seen. Left ovary: - Not seen. Adnexal masses: None Free fluid: None Other: None IMPRESSION: Enlarged heterogeneous uterus with possible retained products of conception.
--- NOTE | 2024-12-15 09:35 | DVHINCON2 ---
Date of service: Dec 15, 2024 Reason for Consultation Retained POC s/p Surgical (TAB) History of Present Illness HPI 34y G8 P:6 SAB1: TAB1, LMP 09/30/24 EGA 11 wk - [facility] through ER department due to acute vaginal bleeding and pelvic pain, elevated WBC - Denies fever/chills, palpitations PMHX: Denies PSHx: D&C x2, C/Section x 1 Meds: none NKDA Social: Denies EtOH use, THC+, denies tobacco Home Meds Active Scripts Ibuprofen Micronized (Ibuprofen) 400 Mg Tab, 400 MG PO Q6HPRN PRN, #30 TAB Prov:JOSE HERNÁNDEZ PAC 09/01/24 Ondansetron Odt 4MG Tab (ZOFRAN PO) 4 Mg Tb, 4 MG PO BID, #20 TAB ODT TAB-DISSOLVE IN MOUTH, THEN SWALLOW Prov:ROSELINE ARRIAZA 04/15/23 Ibuprofen (Ibuprofen) 600 Mg Tab, 1 TAB PO TID, #30 TAB Prov:ROSELINE ARRIAZA 04/15/23 Reported Medications Aspirin (Asa) 81 Mg Ch, 81 MG PO OD 02/14/13 Past Medical History Cardiac: No pertinent Hx Pulmonary: No pertinent Hx Central Nervous System: No pertinent Hx GI: No pertinent Hx Hemotology/Oncology: No pertinent Hx Hepatobiliary: No pertinent Hx Psychiatric: No pertinent Hx Musculoskeletal: No pertinent Hx Rheumotologic: No pertinent Hx Infectious Disease: No peritnent Hx ENT: No pertinent Hx Renal/: No pertinent Hx Endocrine: No pertinent Hx Dermatology: No pertinent Hx Past Surgical History: , Other (D&C) Family History: No pertinent Hx Smoker: No Hx (Negative) Alocohol: None Drugs: Marijuana Review of Systems Constitutional: No symptom reported Ears, Nose, & Throat: No symptom reported Eyes: No symptom reported Pulmonary/Respiratory: No symptom reported Cardiovascular: No symptom reported Gastrointestinal: Nausea, Vomiting, Abdominal Pain Genitourinary: No symptom reported Musculoskeletal: No symptom reported Skin: No symptom reported Psychiatric: No symptom reported Endocrine: No symptom reported Hemotologic/Lymphatic: No symptom reported H&P Exam Vital Signs Vital Signs Date Time Temp Pulse Resp B/P (MAP) Pulse Ox O2 Delivery O2 Flow Rate FiO2 12/15/24 04:38 17 Room Air* 0 21 12/15/24 04:12 98.3 62 110/49 (69) 99 98.3 General Appeara: Well developed, Well nourished, Normal Appearance Head Exam: Normal inspection Neck Exam: Normal inspection Eye Exam: bilateral eye PERRL Pulmonary/Respiratory: Normal inspection Cardiovascular/Chest: Normal inspection, Regular rate Abdominal Exam: Soft, No tenderness, No masses Rectal Exam: Deferred Pelvic Exam: Other (Deferred to [facility] Exam: Normal hearing, Normal speech Thoughts/Psych: Normal thought pattern Skin Exam: Normal inspection Labs/Xrays PATIENT: SMOOTH GILLESPIE MACCT: [id number] UNIT: [id number] : 1990 LOC: [facility] ROOM / BED: [address] [place] [address] AGE / SEX: 34 / F ADM STATUS: ADM IN SERVICE 0545 ORDERING PHYSICIAN: MANUELITO LO DO PROCEDURE(s): OB4US - OB ULTRASOUND COMP LESS 14WKS REASON: suspected incomplete ORDER NUMBER(s): [id number], ACCESSION NUMBER(s): [id number] US OB ULTRASOUND COMP LESS 14WKS HISTORY: suspected incomplete COMPARISON: 12/15 TECHNIQUE: Transabdominal images with color doppler were obtained of the pelvis. FINDINGS: Uterus: - Measures 15.0 x 11.7 x 12.1 cm in length.- intrauterine : Not seen. - Gestational sac: Not seen. - Yolk sac: Not seen. - Embryonic pole: Not seen. Right ovary: - Not seen. Left ovary: - Not seen. Adnexal masses: None Free fluid: None Other: None IMPRESSION: Enlarged heterogeneous uterus with possible retained products of conception. ATED BY: DEAN GARRETT MD DICTATED DATE/TIME: 12/15/24911 PATIENT: SMOOTH GILLESPIE MACCT: [id number] UNIT: [id number] : 1990 LOC: [facility] ROOM / BED: [address] [place] [address] AGE / SEX: 34 / F ADM STATUS: ADM IN SERVICE 0548 ORDERING PHYSICIAN: MANUELITO LO DO PROCEDURE(s): ABPLIV - CT AB PEL WITH IV CON ONLY REASON: Abdominal pain, sepsis, s/p D&C ORDER NUMBER(s): [id number], ACCESSION NUMBER(s): [id number] ADDENDUM ADDENDUM # 1 Critical findings were discussed with Dr. Sahil Le by phone at 11:13 a.m. CDT on 12/15/2024. ORIGINAL REPORT CLINICAL INFORMATION: Abdominal pain, sepsis, status post dilation and curettage. TECHNIQUE: Axial CT images of the abdomen and pelvis were obtained after the uneventful administration of 100 mL Omnipaque 300 IV contrast. Coronal and sagittal reformatted images were obtained, reviewed, and stored. All CT scans at this medical facility are performed using dose modulation techniques as appropr iate to a performed exam including the following: Automated exposure control was utilized; adjustment of the MA and/or KV according to patient size; and use of iterative reconstruction technique. CTDIvol = 6.36 mGy DLP = 311.47 mGy-cm COMPARISON: None FINDINGS: Lung bases: Lung bases are clear. Liver: Hepatic steatosis. Biliary: Calcified gallstones in the gallbladder. Gallbladder is mildly distended. Spleen: Unremarkable. Pancreas: Unremarkable. No inflammatory changes, ductal dilatation, or mass identified. Adrenal glands: Unremarkable. No mass. Kidneys: Moderate left hydronephrosis, with no obstructing calculus visualized. The hydronephrosis may be secondary to extrinsic compression of the left ureter by the enlarged uterus described below. Small cysts in the right kidney. Aorta/Vascular: No aneurysm or significant calcification. Retroperitoneum: No mass or lymphadenopathy. Bowel/mesentery: Nonspecific nondilated fluid-filled small bowel loops. No small bowel obstruction. Appendix is not visualized. There is a small amount of free fluid in the abdomen and pelvis. No free intraperitoneal air. Pelvic organs: Uterus is enlarged, measuring up to 14.7 x 11.0 x 13.2 cm with prominent complex fluid in a distended endometrial canal and thickening and enhancement along the periphery of the uterus. Small amount of adjacent free fluid. There is an ovoid structure along the left anterior superior aspect of the uterus measuring up to 3.4 cm, with heterogeneous enhancement, appears to be due to prominent venous structures and adjacent focal fluid collection in this location. Additional areas of prominent vascularity along the periphery of the uterus are noted. There is an ovoid heterogeneously enhancing structure adjacent to the right posterior aspect of the uterus measuring up to 2.8 cm, possibly correlating with the right ovary. Bladder: Bladder is displaced anteriorly due to the uterine dilation. Abdominal wall: No mass or hernia. Bones: No acute fracture or focal intraosseous lesion. IMPRESSION: 1. Markedly distended endometrial canal, may be partly due to residual sequela of reported history of dilation and curettage. Suspected hemorrhage and/or superimposed infection. If the patient is recently , retained products of conception not excluded. 2. Prominent vascularity adjacent to the uterus. Ovoid structure along the right posterior aspect of the uterus may be due to the right ovary. Ovoid structure along the left anterior superior aspect of the uterus, appears to be a focal fluid collection with adjacent prominent veins. 3. Moderate left hydronephrosis, likely due to extrinsic compression of the left ureter by the enlarged uterus. Critical findings Critical Result: Distended uterine endometrial canal with complex fluid in the endometrial canal, suspected hemorrhage and/or superimposed infection. Retained products not excluded in the appropriate clinical setting. The [facility] radiology call center was contacted to assist with contacting the ordering physician port critical findings 10:44 a.m. CDT. The report will be submitted pending verbal communication of the results. .. ATED BY: CASTRO LE DO DICTATED DATE/TIME: 12/15/24 0914 Labs Test 12/15/24 03:50 12/15/24 02:22 12/15/24 01:50 12/15/24 00:22 Range/Units White Blood Count 14.5 #H 4.4-10.8 10^3/uL Red Blood Count 3.89 L 4.0-5.20 10^6/uL Hemoglobin 11.8 L 12.2-16.2 g/dL Hematocrit 35.0 L 36.0-46.0 % Mean Corpuscular Volume 90.0 80.0-100.0 fL Mean Corpuscular Hemoglobin 30.4 28.0-32.0 pg Mean Corpuscular Hemoglobin Concent 33.8 32.0-36.0 g/dL Red Cell Distribution Width 13.4 11.8-14.3 % Platelet Count 138 L 140-450 10^3/uL Mean Platelet Volume 8.2 6.9-10.8 fL Neutrophils (%) (Auto) 92.6 H 37.0-80.0 % Lymphocytes (%) (Auto) 5.0 L 10.0-50.0 % Monocytes (%) (Auto) 2.2 0.0-12.0 % Eosinophils (%) (Auto) 0.0 0.0-7.0 % Basophils (%) (Auto) 0.2 0.0-2.0 % Neutrophils # (Auto) 13.4 H 1.6-8.6 10 ^3/uL Lymphocytes # (Auto) 0.7 0.4-5.4 10 ^3/uL Monocytes # (Auto) 0.3 0-1.3 10 ^3/uL Eosinophils # (Auto) 0 0-0.8 10 ^3/uL Basophils # (Auto) 0 0-0.2 10 ^3/uL Nucleated Red Blood Cells 0.0 % Sodium Level 136 136-145 mmol/L Potassium Level 3.8 3.5-5.1 mmol/L Chloride Level 105 98-107 mmol/L Carbon Dioxide Level 23 20-31 mmol/L Anion Gap 8 5-15 Blood Urea Nitrogen 11 9-23 mg/dL Creatinine 0.50 L 0.550-1.02 mg/dL Glomerular Filtration Rate Calc 127 >90 mL/min BUN/Creatinine Ratio 22.0 H 10.0-20.0 Serum Glucose 116 H 74-106 mg/dL Calcium Level 9.5 8.7-10.4 mg/dL Lactic Acid Level 2.4 *H 0.4-2.0 mmol/L Lipase 25 12-53 U/L Total Bilirubin 1.3 H 0.2-1.0 mg/dL Aspartate Amino Transferase (AST) 18 13-40 U/L Alanine Aminotransferase (ALT) 12 7-40 U/L Alkaline Phosphatase 42 L 46-116 U/L Total Protein 6.6 5.7-8.2 g/dL Albumin 4.3 3.2-4.8 g/dL Assessment/Plan Admitting Diagnosis: Incomplete s/p D&C, retained POC's Plan Discussed findings w/ patient recommend procedure. Consented for : Pelvic Exam Under Anesthesia, Ultrasound guided uterine suction dilation and curettage Informed consent obtained Risks of pain, bleeding, infection, injury to uterus/perforation, poss blood transfusion d/w patient and agrees to proceed. Plan discussed with: Patient Date of Service: Dec 15, 2024 Billing Provider: MANUELITO LO DO Common Visit Codes: CONSULT ONLY Consultation Codes: [id number] CONSULT <80MIN (I personally reviewed rec ords, i reviewed CT scan and ultrasound images and interpretted labs. DDX and management complex decision making, plan for surgical intervention) MANUELITO LO DO Dec 15, 2024 09:35
[2024-12-15] MEDS: KETOROLAC TROMETH 30 MG/ML 1ML VIAL IV ONE (10:11)
[2024-12-15] MEDS: PIPERACILLIN-TAZOB 3.375GM 100 ML IV SCH (10:14)
[2024-12-15 11:18] LABS: INR 1.19 (0.9-1.15); Partial Thromboplastin Time 27.2 SEC (24.5-34.5); Prothrombin Time 12.4 sec (9.3-11.8)
[2024-12-15] MEDS ORDERED: PIPERACILLIN-TAZOB 3.375GM 100 ML IV SCH (14:00)
[2024-12-15] MEDS ORDERED: fentaNYL CITRATE 100 MCG/2 ML VL ONE (14:37)
[2024-12-15] MEDS: VANCOMYCIN 1GM/200ML PM 200 ML IV SCH (15:00)
[2024-12-15] MEDS: METHYLERGONOVINE MALEATE 0.2 MG/ML AMP IM ONE ×2 (15:08→21:50)
[2024-12-15] MEDS ORDERED: DexAMETHasone SOD PHOS 10MG/1ML VIAL INJ ONE (15:12)
[2024-12-15] MEDS ORDERED: ONDANSETRON HCL 4 MG/2 ML VIAL ONE (15:12)
[2024-12-15] MEDS ORDERED: PROPOFOL 10 MG/ML 20 ML IV ONE (15:12)
[2024-12-15] MEDS ORDERED: OXYTOCIN 10UNIT/ML 1ML VIAL ONE (15:25)
--- NOTE | 2024-12-15 15:31 | DVHPN2 ---
Visit Coding OBGYN Date of Service: Dec 15, 2024 Billing Provider: MANUELITO LO DO AIDS COUNSELOR Common Visit Codes: PROCEDURE ONLY AIDS COUNSELOR Procedure Codes: 27334-N&C, DIAG OR THERAPEUTIC MANUELITO LO DO Dec 15, 2024 15:31
--- NOTE | 2024-12-15 15:44 | DVHPN2 ---
Objective PHYSICAL EXAM Vital Signs and I&O Vital Signs Date Time Temp Pulse Resp B/P (MAP) Pulse Ox O2 Delivery O2 Flow Rate FiO2 12/15/24 08:00 Room Air* 0 21 12/15/24 04:38 17 12/15/24 04:12 98.3 62 110/49 (69) 99 98.3 Intake and Output 12/15/24 07:00 Intake Total 1100 ml Balance 1100 ml Intake Oral 0 ml IV Total 1100 ml # Voids 1 Lab results Laboratory Tests Test 12/15/24 00:22 12/15/24 01:50 12/15/24 02:22 12/15/24 03:50 Range/Units White Blood Count 19.6 H 14.5 #H 4.4-10.8 10^3/uL Red Blood Count 4.06 3.89 L 4.0-5.20 10^6/uL Hemoglobin 12.4 11.8 L 12.2-16.2 g/dL Hematocrit 36.6 35.0 L 36.0-46.0 % Mean Corpuscular Volume 90.1 90.0 80.0-100.0 fL Mean Corpuscular Hemoglobin 30.4 30.4 28.0-32.0 pg Mean Corpuscular Hemoglobin Concent 33.8 33.8 32.0-36.0 g/dL Red Cell Distribution Width 13.7 13.4 11.8-14.3 % Platelet Count 145 138 L 140-450 10^3/uL Mean Platelet Volume 8.0 8.2 6.9-10.8 fL Neutrophils (%) (Auto) 88.1 H 92.6 H 37.0-80.0 % Lymphocytes (%) (Auto) 6.5 L 5.0 L 10.0-50.0 % Monocytes (%) (Auto) 4.8 2.2 0.0-12.0 % Eosinophils (%) (Auto) 0.1 0.0 0.0-7.0 % Basophils (%) (Auto) 0.5 0.2 0.0-2.0 % Neutrophils # (Auto) 17.3 H 13.4 H 1.6-8.6 10 ^3/uL Lymphocytes # (Auto) 1.3 0.7 0.4-5.4 10 ^3/uL Monocytes # (Auto) 0.9 0.3 0-1.3 10 ^3/uL Eosinophils # (Auto) 0 0 0-0.8 10 ^3/uL Basophils # (Auto) 0.1 0 0-0.2 10 ^3/uL Nucleated Red Blood Cells 0.0 0.0 % Sodium Level 135 L 136 136-145 mmol/L Potassium Level 3.4 L 3.8 3.5-5.1 mmol/L Chloride Level 105 105 98-107 mmol/L Carbon Dioxide Level 19 L 23 20-31 mmol/L Anion Gap 11 8 5-15 Blood Urea Nitrogen 11 11 9-23 mg/dL Creatinine 0.63 0.50 L 0.550-1.02 mg/dL Glomerular Filtration Rate Calc 120 127 >90 mL/min BUN/Creatinine Ratio 17.5 22.0 H 10.0-20.0 Serum Glucose 150 H 116 H 74-106 mg/dL Lactic Acid Level 2.8 *H 2.4 *H 0.4-2.0 mmol/L Calcium Level 9.7 9.5 8.7-10.4 mg/dL Total Bilirubin 1.3 H 0.2-1.0 mg/dL Aspartate Amino Transferase (AST) 18 13-40 U/L Alanine Aminotransferase (ALT) 12 7-40 U/L Alkaline Phosphatase 42 L 46-116 U/L Total Protein 6.6 5.7-8.2 g/dL Albumin 4.3 3.2-4.8 g/dL Lipase 25 12-53 U/L Beta HCG, Quantitative 00205.8 H 1.5-4.2 mIU/mL Test 12/15/24 10:28 Range/Units Prothrombin Time 12.4 H 9.3-11.8 sec Prothrombin Time INR 1.19 H 0.9-1.15 Activated Partial Thromboplast Time 27.2 24.5-34.5 SEC Assessment and Plan ASSESSMENT AND PLAN Assessment and Plan Dx Incomplete (therapeutic/ elective) at 11wk gestation Retained POCs Uterine enlargement, probable Adenomyosis Plan See OP report --- D&C under US guidance completed. Will switch from Broad spectrum IV antibiotics to PO antibiotics: Doxycycline/Flagyl PO x 1 week Serial H/H Observe until tomorrow, if stable, will consider discharge home tomorrow with outpatient follow up. My orders: Orders - MANUELITO LO DO Ct Ab Pel With Iv Con Only (4/27/25 05:48) Ob Ultrasound Comp Less 14wks (12/15/24 05:45) Urine Bacterial Culture (12/15/24 07:18) Chlamydia/Gc Amplification (12/15/24 07:26) Obtain Consent For: (12/15/24 09:38) Obtain Consent For Anesthesia (12/15/24 09:38) Regular Diet (12/15/24 Dinner) Doxycycline Tablet (Vibramycin Tablet) (12/15/24 17:00) Metronidazole Tablet (Flagyl Tablet) (12/15/24 17:00) Methylergonovine Maleate (Methergine) (12/15/24 21:00) Complete Blood Count (12/15/24 18:00) Complete Blood Count (12/16/24 00:00) Complete Blood Count (12/16/24 06:00) Plan discussed with: Patient Date of Service: Dec 15, 2024 Billing Provider: MANUELITO LO DO Common Visit Codes: [id number] INP/OBS CARE(HIGH) MANUELITO LO DO Dec 15, 2024 15:44
[2024-12-15] MEDS ORDERED: DOX100T PO (15:46)
[2024-12-15] MEDS ORDERED: IBUP1TAB4 PO (15:46)
[2024-12-15] MEDS ORDERED: MET500T PO (15:47)
--- NOTE | 2024-12-15 16:49 | DVHOP ---
DATE OF SURGERY: 12/15/2024 PREOPERATIVE DIAGNOSIS: Incomplete with retained products of conception. FINAL DIAGNOSES: Incomplete with retained products of conception with probable uterine adenomyosis. SURGEON: Bryan Martinez DO GEOLOGIST: None. PROCEDURES PERFORMED: * Pelvic exam under anesthesia. * Ultrasound-guided uterine suction dilatation and curettage (D and C). INDICATION FOR PROCEDURE: The patient is a 34-year-old female who underwent elective termination of on the day prior at [facility]. She was approximately 11 weeks when she underwent D and C yesterday. She was admitted through the emergency room with elevated white blood count, continued bleeding, and severe abdominal pain. Ultrasound findings revealed an enlarged uterus with the cervix open and a moderate amount of heterogeneous fluid and debris within the uterine cavity and within the endometrial canal. DESCRIPTION OF FINDINGS: The uterus is retroverted. The uterus is enlarged 14 to 15-week size. Uterine cavity sounds to 12 cm. A #10 curved suction cannula was used under ultrasound guidance to evacuate the contents of the uterine cavity. Abundant blood clots were removed from the uterine cavity. TECHNICAL PROCEDURE: After informed consent was obtained, the patient was taken to the operating room where she underwent smooth induction with general anesthesia. She was placed in the dorsal lithotomy position in [facility]. The vagina and perineum were thoroughly prepped and the patient was sterilely draped in the usual fashion. A pelvic exam was then performed under anesthesia with the above-noted findings. A weighted speculum was placed into the patient's vagina and the anterior lip of the cervix was grasped with a single-tooth tenaculum. Uterine cavity sounded to 12 cm. Under ultrasound guidance, the uterine cervix was gently dilated to a #10 mm cannula. The 10-mm suction cannula was advanced under ultrasound guidance through the cervix into the uterine cavity. Once intrauterine placement was confirmed, the suction device was activated. The instrument was rotated and the uterus evacuated of all products of conception and blood clots. There was an abundant amount of tissue that was collected into two canisters. The endometrium appeared to be completely cleared of all tissue by ultrasound surveillance. The instrument was removed and there was minimal bleeding noted. Bimanual massage and bimanual uterine exam was performed. The uterus was approximately 14 weeks' size at the conclusion of the procedure. IM Methergine and IV Pitocin were given with hemostasis confirmed. The patient was taken out of lithotomy position, awakened, and taken to the recovery room in stable condition. INTRAOPERATIVE COMPLICATIONS: None. ESTIMATED BLOOD LOSS: Approximately 300 mL of blood clots and tissue removed. SPECIMENS: Products of conception (POCs). MEDICATIONS: Methergine 0.2 mg IM and 30 units of IV Pitocin. DO FAITH Fagan TID: [id number] RECEIPT: [id number] MTDD
[2024-12-15 18:11] LABS: Basophils # (auto) 0 10 ^3/uL (0-0.2); Basophils % (auto) 0.1 % (0.0-2.0); Eosinophils # (auto) 0 10 ^3/uL (0-0.8); Eosinophils % (auto) 0.3 % (0.0-7.0); Hematocrit 32.3 % (36.0-46.0); Lymphocytes # (auto) 0.8 10 ^3/uL (0.4-5.4); Lymphocytes % (auto) 7.7 % (10.0-50.0); Mean Corpuscular Hemoglobin 30.9 pg (28.0-32.0); Monocytes # (auto) 0.1 10 ^3/uL (0-1.3); Monocytes % (auto) 1.4 % (0.0-12.0); Neutrophils # (auto) 9.5 10 ^3/uL (1.6-8.6); Neutrophils % (auto) 90.5 % (37.0-80.0); Platelet Count (auto) 118 10^3/uL (140-450); Red Blood Cells 3.55 10^6/uL (4.0-5.20); Red Cell Distribution Width 13.8 % (11.8-14.3); White Blood Cell 10.5 10^3/uL (4.4-10.8)
[2024-12-15] MEDS: metroNIDAZOLE 500 MG TAB PO SCH (18:28)
[2024-12-15] MEDS: DOXYCYCLINE 100 MG TAB/CAP PO SCH (18:28)
[2024-12-15 18:57] LABS: Urine Bacteria None Seen /hpf (None Seen)
[2024-12-15 19:10] LABS: Urine Blood 3+ /uL (Negative); Urine Budding Yeast FEW /hpf (None Seen); Urine Clarity Ex.Turbid (Clear); Urine Color Light-Red (Yellow); Urine Protein, UAD 1+ (Negative); Urine Squamous Epithelial Cell None Seen /hpf (<5); Urine Urobilinogen Normal (Negative); Urine WBC 36 /HPF (0-5)
[2024-12-15 19:14] LABS: Benzodiazephine Screen, Urine Pos (NEGATIVE)
[2024-12-15 19:16] LABS: Amphetamine Screen, Urine Neg (NEGATIVE); Barbiturate Scree,Urine Neg (NEGATIVE); Cannabinoid Screen, Urine Pos (NEGATIVE); Cocaine Screen, Urine Neg (NEGATIVE); Opiate Scree,Urine Pos (NEGATIVE); Phencyclidine Screen, Urine Neg (NEGATIVE); Urine Specific Gravity > 1.050 (1.001-1.035)
--- NOTE | 2024-12-15 21:26 | DVHPN2 ---
Subjective The patient is seen and examined at bedside. No complaint today. Reviewed: Care Plan, H&P, Labs, Medications, Previous Orders, Radiology Changes from previous H/P or p: No Changes Eyes: No Pain, No Vision change, No Conjunctivae inflammation, No Eyelid inflammation, No Other, No Redness ENT: No Ear pain, No Ear discharge, No Nose pain, No Nose discharge, No Nose congestion, No Mouth pain, No Mouth swelling, No Throat pain, No Throat swelling, No Other Cardiovascular: No Chest Pain, No Palpitations, No Orthopnea, No Paroxysmal Noc. Dyspnea, No Edema, No Lt Headedness, No Other Respiratory: No Cough, No Dry, No Shortness of breath, No SOB with excertion, No Wheezing, No Hemoptysis, No Pleuritic Pain, No Sputum, No Other Gastrointestinal: Nausea; No Vomiting; Abdominal Pain; No Diarrhea, No Constipation, No Melena, No Hematochezia, No Other Genitourinary: No Dysuria, No Frequency, No Incontinence, No Hematuria, No Retention, No Other Musculoskeletal: No other, No neck pain, No shoulder pain, No arm pain, No back pain, No hand pain, No leg pain, No foot pain Skin: No Rash, No Lesions, No Jaundice, No Bruising, No Other Objective Vitals Vital Signs Date Time Temp Pulse Resp B/P (MAP) Pulse Ox O2 Delivery O2 Flow Rate FiO2 12/15/24 18:57 76 18 102/76 12/15/24 17:00 98.4 98 98.4 12/15/24 15:26 Room Air 96 12/15/24 08:00 0 Intake/Output Intake and Output 12/15/24 07:00 Intake Total 1100 ml Balance 1100 ml Intake Oral 0 ml IV Total 1100 ml # Voids 1 General Appearance: Alert, Oriented X3, Cooperative, No acute distress HEENT: Atraumatic, PERRLA, EOMI, Mucous membr. moist/pink Neck: Supple Lungs: Clear to auscultation, Normal air movement Cardiovascular: Regular rate, Normal S1, Normal S2, No murmurs, Gallops, Rubs Abdomen: Normal bowel sounds, Soft, No tenderness Neuro: Cranial nerves 3-12 NL Psych/Mental Status: Mental status NL Medications Current Medications Medications Dose Ordered Sig/Richard Route Start Time Stop Time Status Last Admin Dose Admin Sodium Chloride 1,000 ml @ 100 mls/hr Q10H IV 12/15/24 02:15 Lorazepam 0.5 mg Q6HP PRN PO 12/15/24 02:15 Al Hydrox/Mg Hydrox/Simethicone 30 ml Q6HP PRN PO 12/15/24 02:15 Docusate Sodium 100 mg BIDPRN PRN PO 12/15/24 02:15 Acetaminophen 650 mg Q6HP PRN PO 12/15/24 02:15 Temazepam 15 mg QHSP PRN PO 12/15/24 02:15 Acetaminophen/ Hydrocodone Bitart 1 tab Q4HP PRN PO 12/15/24 02:15 12/15/24 05:26 1 TAB Ondansetron HCl 4 mg Q4HP PRN IV 12/15/24 02:15 12/15/24 02:54 4 MG Morphine Sulfate 2 mg Q4HPRN PRN IV 12/15/24 02:15 12/15/24 18:57 2 MG Doxycycline Monohydrate 100 mg Q12HR PO 12/15/24 17:00 12/15/24 18:28 100 MG Metronidazole 500 mg Q12HR PO 12/15/24 17:00 12/15/24 18:28 500 MG Laboratory Results Laboratory Tests 12/15/24 03:50 12/15/24 17:49 Chemistry Test 12/15/24 00:22 12/15/24 03:50 Albumin 4.3 g/dL (3.2-4.8) Calcium Level 9.7 mg/dL (8.7-10.4) 9.5 mg/dL (8.7-10.4) Total Protein 6.6 g/dL (5.7-8.2) Coagulation Test 12/15/24 10:28 Prothrombin Time 12.4 sec (9.3-11.8) H Prothrombin Time INR 1.19 (0.9-1.15) H Activated Partial Thromboplast Time 27.2 SEC (24.5-34.5) Lipid panel Test 12/15/24 01:50 Lipase 25 U/L (12-53) LFT Test 12/15/24 00:22 Alanine Aminotransferase (ALT) 12 U/L (7-40) Alkaline Phosphatase 42 U/L (46-116) L Aspartate Amino Transferase (AST) 18 U/L (13-40) Total Bilirubin 1.3 mg/dL (0.2-1.0) H Urinalysis Test 12/15/24 18:41 Urine Color Light-red (Yellow) Urine Clarity Ex.turbid (Clear) Urine pH 6.0 (5.0-9.0) Urine Specific [place] > 1.050 (1.001-1.035) Urine Protein 1+ (Negative) H Urine Ketones Trace (Negative) Urine Blood 3+ /uL (Negative) H Urine Nitrite Negative (Negative) Urine Bilirubin Negative (Negative) Urine Urobilinogen Normal mg/dL (Negative) Urine Leukocyte Esterase 1+ /uL (Negative) Urine RBC 9016 /hpf (0 - 4) Urine Microscopic WBC 36 /HPF (0-5) H Urine Squamous Epithelial Cells None seen /hpf (<5) Urine Bacteria None seen /hpf (None Seen) Urine Yeast (Budding) Few /hpf (None Seen) Urine Glucose Normal mg/dL (Normal) Labs and/or images reviewed: Labs reviewed by me Assessment/Plan Assessment/Plan Incomplete with retained products of conception. Vaginal bleed History of 11 weeks intrauterine Continuing current management. The patient is keep NPO for now. Continuing IV fluid. Waiting for OBGYN for procedure of evacuate the retained products of conception. This medical document was created using an electronic medical record system with [employer] direct computerized dictation system. Although this document has been carefully reviewed, there may still be some phonetic and typographical errors. These areas are purely typographical due to imperfections of the software programs, and do not reflect any compromise in the patient's medical care. Plan discussed with: Patient Date of Service: Dec 15, 2024 Billing Provider: MORGAN GARCIA MD Common Visit Codes: [id number] INP/OBS CARE(HIGH) MORGAN GARCIA MD Dec 15, 2024 21:26
[2024-12-15 22:25] LABS: Lactic Acid w/Reflex 2.2 mmol/L (0.4-2.0)
[2024-12-16 00:52] LABS: Basophils # (auto) 0 10 ^3/uL (0-0.2); Basophils % (auto) 0.2 % (0.0-2.0); Eosinophils # (auto) 0 10 ^3/uL (0-0.8); Hematocrit 29.6 % (36.0-46.0); Lymphocytes # (auto) 0.9 10 ^3/uL (0.4-5.4); Mean Corpuscular Hemoglobin 30.4 pg (28.0-32.0); Mean Corpuscular Hgb Conc. 33.9 g/dL (32.0-36.0); Mean Corpuscular Volume 89.6 fL (80.0-100.0); Monocytes # (auto) 0.2 10 ^3/uL (0-1.3); Monocytes % (auto) 2.2 % (0.0-12.0); Neutrophils # (auto) 9.9 10 ^3/uL (1.6-8.6); Neutrophils % (auto) 89.6 % (37.0-80.0); Nucleated Red Blood Cells % 0.1 %; Platelet Count (auto) 123 10^3/uL (140-450); Red Cell Distribution Width 13.6 % (11.8-14.3)
[2024-12-16 01:00] VITALS: BP 106/61; PULSE 87; RESP 17; TEMP 97.1; O2SAT 99
--- NOTE | 2024-12-16 04:12 | DVHPN2 ---
Subjective Progress Notes Subjective POD#1 s/p D&C for retained POCs after surgical termination of (elective 11 wk ) S: feeling better, bleeding much less, no fever/chills Objective PHYSICAL EXAM Physical Exam: Alert, NAD Abd soft, nt ext, no edema, neg abdirahman sign labs: reviewed Vital Signs and I&O Vital Signs Date Time Temp Pulse Resp B/P (MAP) Pulse Ox O2 Delivery O2 Flow Rate FiO2 12/16/24 01:00 97.1 87 17 106/61 (76) 99 97.1 12/15/24 20:00 Room Air* 0 21 Intake and Output 12/16/24 07:00 Intake Total 100 ml Balance 100 ml Intake Oral 0 ml IV Total 100 ml # Voids 5 Lab results Laboratory Tests Test 12/15/24 00:22 12/15/24 01:50 12/15/24 02:22 12/15/24 03:50 Range/Units White Blood Count 19.6 H 14.5 #H 4.4-10.8 10^3/uL Red Blood Count 4.06 3.89 L 4.0-5.20 10^6/uL Hemoglobin 12.4 11.8 L 12.2-16.2 g/dL Hematocrit 36.6 35.0 L 36.0-46.0 % Mean Corpuscular Volume 90.1 90.0 80.0-100.0 fL Mean Corpuscular Hemoglobin 30.4 30.4 28.0-32.0 pg Mean Corpuscular Hemoglobin Concent 33.8 33.8 32.0-36.0 g/dL Red Cell Distribution Width 13.7 13.4 11.8-14.3 % Platelet Count 145 138 L 140-450 10^3/uL Mean Platelet Volume 8.0 8.2 6.9-10.8 fL Neutrophils (%) (Auto) 88.1 H 92.6 H 37.0-80.0 % Lymphocytes (%) (Auto) 6.5 L 5.0 L 10.0-50.0 % Monocytes (%) (Auto) 4.8 2.2 0.0-12.0 % Eosinophils (%) (Auto) 0.1 0.0 0.0-7.0 % Basophils (%) (Auto) 0.5 0.2 0.0-2.0 % Neutrophils # (Auto) 17.3 H 13.4 H 1.6-8.6 10 ^3/uL Lymphocytes # (Auto) 1.3 0.7 0.4-5.4 10 ^3/uL Monocytes # (Auto) 0.9 0.3 0-1.3 10 ^3/uL Eosinophils # (Auto) 0 0 0-0.8 10 ^3/uL Basophils # (Auto) 0.1 0 0-0.2 10 ^3/uL Nucleated Red Blood Cells 0.0 0.0 % Sodium Level 135 L 136 136-145 mmol/L Potassium Level 3.4 L 3.8 3.5-5.1 mmol/L Chloride Level 105 105 98-107 mmol/L Carbon Dioxide Level 19 L 23 20-31 mmol/L Anion Gap 11 8 5-15 Blood Urea Nitrogen 11 11 9-23 mg/dL Creatinine 0.63 0.50 L 0.550-1.02 mg/dL Glomerular Filtration Rate Calc 120 127 >90 mL/min BUN/Creatinine Ratio 17.5 22.0 H 10.0-20.0 Serum Glucose 150 H 116 H 74-106 mg/dL Lactic Acid Level 2.8 *H 2.4 *H 0.4-2.0 mmol/L Calcium Level 9.7 9.5 8.7-10.4 mg/dL Total Bilirubin 1.3 H 0.2-1.0 mg/dL Aspartate Amino Transferase (AST) 18 13-40 U/L Alanine Aminotransferase (ALT) 12 7-40 U/L Alkaline Phosphatase 42 L 46-116 U/L Total Protein 6.6 5.7-8.2 g/dL Albumin 4.3 3.2-4.8 g/dL Lipase 25 12-53 U/L Beta HCG, Quantitative 15919.8 H 1.5-4.2 mIU/mL Test 12/15/24 10:28 12/15/24 17:49 12/15/24 18:41 12/15/24 21:23 Range/Units Prothrombin Time 12.4 H 9.3-11.8 sec Prothrombin Time INR 1.19 H 0.9-1.15 Activated Partial Thromboplast Time 27.2 24.5-34.5 SEC White Blood Count 10.5 # 4.4-10.8 10^3/uL Red Blood Count 3.55 L 4.0-5.20 10^6/uL Hemoglobin 11.0 L 12.2-16.2 g/dL Hematocrit 32.3 L 36.0-46.0 % Mean Corpuscular Volume 91.0 80.0-100.0 fL Mean Corpuscular Hemoglobin 30.9 28.0-32.0 pg Mean Corpuscular Hemoglobin Concent 34.0 32.0-36.0 g/dL Red Cell Distribution Width 13.8 11.8-14.3 % Platelet Count 118 L 140-450 10^3/uL Mean Platelet Volume 8.3 6.9-10.8 fL Neutrophils (%) (Auto) 90.5 H 37.0-80.0 % Lymphocytes (%) (Auto) 7.7 L 10.0-50.0 % Monocytes (%) (Auto) 1.4 0.0-12.0 % Eosinophils (%) (Auto) 0.3 0.0-7.0 % Basophils (%) (Auto) 0.1 0.0-2.0 % Neutrophils # (Auto) 9.5 H 1.6-8.6 10 ^3/uL Lymphocytes # (Auto) 0.8 0.4-5.4 10 ^3/uL Monocytes # (Auto) 0.1 0-1.3 10 ^3/uL Eosinophils # (Auto) 0 0-0.8 10 ^3/uL Basophils # (Auto) 0 0-0.2 10 ^3/uL Nucleated Red Blood Cells 0.0 % Urine Color Light-red Yellow Urine Clarity Ex.turbid Clear Urine pH 6.0 5.0-9.0 Urine Specific [place] > 1.050 H 1.001-1.035 Urine Protein 1+ H Negative Urine Ketones Trace Negative Urine Blood 3+ H Negative /uL Urine Nitrite Negative Negative Urine Bilirubin Negative Negative Urine Urobilinogen Normal Negative mg/dL Urine Leukocyte Esterase 1+ Negative /uL Urine RBC 9016 0 - 4 /hpf Urine Microscopic WBC 36 H 0-5 /HPF Urine Squamous Epithelial Cells None seen <5 /hpf Urine Bacteria None seen None Seen /hpf Urine Yeast (Budding) Few None Seen /hpf Urine Glucose Normal Normal mg/dL Urine Opiates Screen Pos NEGATIVE Urine Fentanyl Screen Pos NEGATIVE Urine Barbiturates Screen Neg NEGATIVE Urine Phencyclidine Screen Neg NEGATIVE Urine Amphetamines Screen Neg NEGATIVE Urine Benzodiazepines Screen Pos NEGATIVE Urine Cocaine Screen Neg NEGATIVE Urine Cannabinoids Screen Pos NEGATIVE Chlamydia trachomatis (CARLIE) Pending Neisseria gonorrhoeae (CARLIE) Pending Lactic Acid Level 2.2 *H 0.4-2.0 mmol/L Test 12/15/24 23:50 12/16/24 00:22 Range/Units Lactic Acid Level 0.9 0.4-2.0 mmol/L White Blood Count 11.0 H 4.4-10.8 10^3/uL Red Blood Count 3.30 L 4.0-5.20 10^6/uL Hemoglobin 10.0 L 12.2-16.2 g/dL Hematocrit 29.6 L 36.0-46.0 % Mean Corpuscular Volume 89.6 80.0-100.0 fL Mean Corpuscular Hemoglobin 30.4 28.0-32.0 pg Mean Corpuscular Hemoglobin Concent 33.9 32.0-36.0 g/dL Red Cell Distribution Width 13.6 11.8-14.3 % Platelet Count 123 L 140-450 10^3/uL Mean Platelet Volume 8.4 6.9-10.8 fL Neutrophils (%) (Auto) 89.6 H 37.0-80.0 % Lymphocytes (%) (Auto) 8.0 L 10.0-50.0 % Monocytes (%) (Auto) 2.2 0.0-12.0 % Eosinophils (%) (Auto) 0.0 0.0-7.0 % Basophils (%) (Auto) 0.2 0.0-2.0 % Neutrophils # (Auto) 9.9 H 1.6-8.6 10 ^3/uL Lymphocytes # (Auto) 0.9 0.4-5.4 10 ^3/uL Monocytes # (Auto) 0.2 0-1.3 10 ^3/uL Eosinophils # (Auto) 0 0-0.8 10 ^3/uL Basophils # (Auto) 0 0-0.2 10 ^3/uL Nucleated Red Blood Cells 0.1 % Assessment and Plan ASSESSMENT AND PLAN Assessment and Plan POD#1 s/p D&C for incomplete SAB Precipitous drop in H/H Leukocytosis improved Plan: Per [facility] standpoint, will await repeat H/H - Uterine bleeding improved and appears to be hemodynamically stable May discharge once cleared by IM service. - D/C home on PO Doxycyline and Flagyl x 1 week - F/U in [facility] Office in 1 wk - Supervisor [employer] will sign off. My orders: Orders - MANUELITO LO DO Ct Ab Pel With Iv Con Only (12/15/24 05:48) Ob Ultrasound Comp Less 14wks (12/15/24 05:45) Urine Bacterial Culture (12/15/24 07:18) Chlamydia/Gc Amplification (12/15/24 07:26) Obtain Consent For: (12/15/24 09:38) Obtain Consent For Anesthesia (12/15/24 09:38) Regular Diet (12/15/24 Dinner) Doxycycline Tablet (Vibramycin Tablet) (12/15/24 17:00) Metronidazole Tablet (Flagyl Tablet) (12/15/24 17:00) Plan discussed with: Patient Visit Coding OBGYN Date of Service: Dec 16, 2024 Billing Provider: MANUELITO LO DO KITCHEN [employer]NER Common Visit Codes: CONSULTATION ONLY KITCHEN [employer]NER Consultation Codes: [id number]/U INPATIENT CONSULT (MOD) MANUELITO LO DO Dec 16, 2024 04:12
[2024-12-16 05:00] VITALS: BP 100/50; PULSE 73; RESP 18; TEMP 97; O2SAT 97
--- NOTE | 2024-12-16 06:34 | DVH ---
Exam: US US GUIDANCE FOR NEEDLE PLACEME Clinical History: DNC WITH DR. LO Comparison: None Technique: Targeted sonographic evaluation of the soft tissues of the uterus was obtained utilizing grayscale a nd color Doppler imaging. Findings/Impression: Sonographic assistance for DandC procedure. Please refer to surgical report for detailed findings.
[2024-12-16 07:01] LABS: Basophils # (auto) 0 10 ^3/uL (0-0.2); Basophils % (auto) 0.3 % (0.0-2.0); Eosinophils # (auto) 0 10 ^3/uL (0-0.8); Eosinophils % (auto) 0.1 % (0.0-7.0); Hematocrit 24.6 % (36.0-46.0); Hemoglobin 8.7 g/dL (12.2-16.2); Lymphocytes # (auto) 1.6 10 ^3/uL (0.4-5.4); Lymphocytes % (auto) 17.4 % (10.0-50.0); Mean Corpuscular Hemoglobin 31.5 pg (28.0-32.0); Mean Corpuscular Hgb Conc. 35.2 g/dL (32.0-36.0); Mean Corpuscular Volume 89.5 fL (80.0-100.0); Monocytes # (auto) 0.5 10 ^3/uL (0-1.3); Monocytes % (auto) 5.1 % (0.0-12.0); Neutrophils # (auto) 7.2 10 ^3/uL (1.6-8.6); Neutrophils % (auto) 77.1 % (37.0-80.0); Platelet Count (auto) 110 10^3/uL (140-450); Red Blood Cells 2.75 10^6/uL (4.0-5.20); Red Cell Distribution Width 13.7 % (11.8-14.3); White Blood Cell 9.3 10^3/uL (4.4-10.8)
[2024-12-16 09:00] VITALS: BP 95/35; PULSE 77; RESP 16; TEMP 97.9; O2SAT 99
--- NOTE | 2024-12-16 11:24 | DVHDS2 ---
Discharge Summary Date of Admission Dec 15, 2024 at 02:15 Date of Discharge: Dec 16, 2024 Admitting Diagnosis Incomplete with retained products of conception. Vaginal bleed History of 11 weeks intrauterine Labs/Diagnostic Data: Laboratory Results Test 12/16/24 06:00 12/15/24 23:50 12/15/24 18:41 12/15/24 10:28 White Blood Count 9.3 10^3/uL (4.4-10.8) Red Blood Count 2.75 10^6/uL (4.0-5.20) Hemoglobin 8.7 g/dL (12.2-16.2) Hematocrit 24.6 % (36.0-46.0) Mean Corpuscular Volume 89.5 fL (80.0-100.0) Mean Corpuscular Hemoglobin 31.5 pg (28.0-32.0) Mean Corpuscular Hemoglobin Concent 35.2 g/dL (32.0-36.0) Red Cell Distribution Width 13.7 % (11.8-14.3) Platelet Count 110 10^3/uL (140-450) Mean Platelet Volume 8.7 fL (6.9-10.8) Neutrophils (%) (Auto) 77.1 % (37.0-80.0) Lymphocytes (%) (Auto) 17.4 % (10.0-50.0) Monocytes (%) (Auto) 5.1 % (0.0-12.0) Eosinophils (%) (Auto) 0.1 % (0.0-7.0) Basophils (%) (Auto) 0.3 % (0.0-2.0) Neutrophils # (Auto) 7.2 10 ^3/uL (1.6-8.6) Lymphocytes # (Auto) 1.6 10 ^3/uL (0.4-5.4) Monocytes # (Auto) 0.5 10 ^3/uL (0-1.3) Eosinophils # (Auto) 0 10 ^3/uL (0-0.8) Basophils # (Auto) 0 10 ^3/uL (0-0.2) Nucleated Red Blood Cells 0.0 % Creatinine 0.45 mg/dL (0.550-1.02) Glomerular Filtration Rate Calc 130 mL/min (>90) Lactic Acid Level 0.9 mmol/L (0.4-2.0) Urine Color Light-red (Yellow) Urine Clarity Ex.turbid (Clear) Urine pH 6.0 (5.0-9.0) Urine Specific [place] > 1.050 (1.001-1.035) Urine Protein 1+ (Negative) Urine Ketones Trace (Negative) Urine Blood 3+ /uL (Negative) Urine Nitrite Negative (Negative) Urine Bilirubin Negative (Negative) Urine Urobilinogen Normal mg/dL (Negative) Urine Leukocyte Esterase 1+ /uL (Negative) Urine RBC 9016 /hpf (0 - 4) Urine Microscopic WBC 36 /HPF (0-5) Urine Squamous Epithelial Cells None seen /hpf (<5) Urine Bacteria None seen /hpf (None Seen) Urine Yeast (Budding) Few /hpf (None Seen) Urine Glucose Normal mg/dL (Normal) Urine Opiates Screen Pos (NEGATIVE) Urine Fentanyl Screen Pos (NEGATIVE) Urine Barbiturates Screen Neg (NEGATIVE) Urine Phencyclidine Screen Neg (NEGATIVE) Urine Amphetamines Screen Neg (NEGATIVE) Urine Benzodiazepines Screen Pos (NEGATIVE) Urine Cocaine Screen Neg (NEGATIVE) Urine Cannabinoids Screen Pos (NEGATIVE) Prothrombin Time 12.4 sec (9.3-11.8) Prothrombin Time INR 1.19 (0.9-1.15) Activated Partial Thromboplast Time 27.2 SEC (24.5-34.5) Test 12/15/24 03:50 12/15/24 01:50 12/15/24 00:22 Sodium Level 136 mmol/L (136-145) Potassium Level 3.8 mmol/L (3.5-5.1) Chloride Level 105 mmol/L (98-107) Carbon Dioxide Level 23 mmol/L (20-31) Anion Gap 8 (5-15) Blood Urea Nitrogen 11 mg/dL (9-23) BUN/Creatinine Ratio 22.0 (10.0-20.0) Serum Glucose 116 mg/dL (74-106) Calcium Level 9.5 mg/dL (8.7-10.4) Beta HCG, Quantitative 84801.8 mIU/mL (1.5-4.2) Lipase 25 U/L (12-53) Total Bilirubin 1.3 mg/dL (0.2-1.0) Aspartate Amino Transferase (AST) 18 U/L (13-40) Alanine Aminotransferase (ALT) 12 U/L (7-40) Alkaline Phosphatase 42 U/L (46-116) Total Protein 6.6 g/dL (5.7-8.2) Albumin 4.3 g/dL (3.2-4.8) Other Laboratory Tests 12/16/24 06:00 12/15/24 03:50 Brief Hx & Hospital Course: This is a 34 years old female come to emergency department because of abdominal pain. [facility] apparently [facility] According to the patient she had a D&C complete plan parents heard and they sent her home. However she started having severe abdominal pain 12 hours after she had was the D&C. She also had vaginal bleeding. Was found to have elevation of white cell count surgery in emergency department and hypotension. CT scan abdomen and pelvis showed: Markedly distended endometrial canal, may be partly due to residual sequela of reported history of dilation and curettage. Suspected hemorrhage and/or superimposed infection. If the patient is recently , retained products of conception not excluded. Prominent vascularity adjacent to the uterus. Ovoid structure along the right posterior aspect of the uterus may be due to the right ovary. Ovoid structure along the left anterior superior aspect of the uterus, appears to be a focal fluid collection with adjacent prominent veins. Moderate left hydronephrosis, likely due to extrinsic compression of the left ureter by the enlarged uterus. Distended uterine endometrial canal with complex fluid in the endometrial canal, suspected hemorrhage and/or superimposed infection. Retained products not excluded in the appropriate clinical setting. She appeared to be sepsis and was admitted to the hospital. OBGYN see her and found that she had retained products after the D and C. They took her to the OR and evacuated all of the retained products for the [facility] Patient also was on IV antibiotic with Flagyl and vancomycin. Blood culture showed no growth. Blood pressure stable after IV fluid bolus. No vaginal bleeding today. Hemoglobin stable. So I am going to discharge her home. Advised her to follow up with primary care physician 1-2 weeks. Follow up with her OBGYN as outpatient. Physical exam: HEENT: Normocephalic atraumatic pupils equal react to light and accommodation. Extraocular muscles intact, conjunctiva pink, oropharynx moist, no thrush, no exudate. Lymphatic: No lymphadenopathy Cardiovascular exam: S1, S2 was heard. No murmurs, rubs, gallops Lung: Clear on auscultation bilaterally, no wheeze, rale, rhonchi. GI: Abdominal soft, nondistended, nontenderness, positive bowel sounds. Extremity: No crepitus, cyanosis, edema. Pedal pulses present bilateral. Full range of motion. Skin: Normal turgor, no rash. Psych: Alert, oriented x3. Neurology: No focal deficits, cranial nerve II to XII grossly intact. This medical document was created using an electronic medical record system with [employer] direct computerized dictation system. Although this document has been carefully reviewed, there may still be some phonetic and typographical errors. These areas are purely typographical due to imperfections of the software programs, and do not reflect any compromise in the patient's medical care. Condition at Discharge: Stable Final Diagnosis/Problems List Incomplete with retained products of conception. Vaginal bleed History of 11 weeks intrauterine Discharge Disposition: Home Discharge Instruct/Medications Diet: Regular Activity: No Restrictions, As Tolerated Follow Up/Referral: PCP 1-2 WEEKS SERVICE ORDER DISPATCHER CHIEF PER SCHEDULE. Medications: RESUME MEDICATION Discharge Statement: "Patient was advised to return to the ER or call 911 if any headaches, dizziness, shortness of breath, chest pain, abdominal pain, bleeding, fevers, or worsening of medical condition. Patient was counseled about treatment plan, medications, possible side effects, patient�verbalized understanding. All questions were answered to the best of my ability. This discharge took greater then 30 minutes in planning, reviewing documentation, counseling the patient, and discussing with other team members." ASSESSMENT ASSESSMENT Assessment RETAIN PRODUCT Date of Service: Dec 16, 2024 Billing Provider: MORGAN GARCIA MD Common Visit Codes: 36258-NYP/OBS DISCH DAY >30min MORGAN GARCIA MD Dec 16, 2024 11:24
[2024-12-16] MEDS ORDERED: HYDR-4902 PO (11:48)
[2024-12-16 13:00] VITALS: BP 104/57; PULSE 72; RESP 17; TEMP 98.1; O2SAT 99
[2024-12-16 13:44] VITALS: BP 104/58; PULSE 89; RESP 18; TEMP 97.9; O2SAT 98
[2024-12-18 01:06] LABS: Chlamydia Trachomatis, NAA Negative (Negative); Neisseria gonorrhoeae, NAA Negative (Negative)
== END 2024-12-16 14:06 | disposition home or self-care (01) | DRG 543 ==
LOC: ER 00:08 → EDBD 00:08 → OVERFLOW 02:15 → EAST 02:20
PROVIDERS: ADMIT Internal Medicine; ATTEND Internal Medicine
PROC: 10D17ZZ Extraction of Products of Conception, Retained, Via Natural or Artificial Opening (ICD-10-PCS; principal; 2024-12-15 14:43)
DX: O07.37 Sepsis following failed attempted termination of pregnancy (principal); A41.9 Sepsis, unspecified organism; R71.0 Precipitous drop in hematocrit; O07.1 Delayed or excessive hemorrhage following failed attempted termination of pregnancy; M54.50 Low back pain, unspecified; N80.03 Adenomyosis of the uterus; Z3A.11 11 weeks gestation of pregnancy
CPT/HCPCS: 36415; 74177; 76801; 76942; 80048; 80053; 80307; 81001; 82565; 83605; 83690; 84702; 85025; 85610; 85730; 86850; 86900; 86901; 87040; 96361; 96374; G0378; J1100; J1885; J2405; J2543; J2704; Q0162